=== PATIENT | female | born 1970 | race Hispanic/Latino ===

== ENCOUNTER 2021-08-15 12:43 | Emergency (ER) | payer OTHER ==
[~2021-08-15] VITALS: Ht 165.1 cm; Wt 74.8 kg
[2021-08-15 12:44] VITALS: BP 125/58
[2021-08-15 16:04] LABS: BASOPHILS % (AUTO) 0.2 % (0.0-5.0); EOSINOPHILS % (AUTO) 1.9 % (0.0-8.0); HEMATOCRIT 43.2 % (36-48); LYMPHOCYTES % (AUTO) 24.6 % (21.0-51.0); MEAN CORPUSCULAR HEMOGLOBIN 29.1 pg (27.0-33.0); MEAN CORPUSCULAR HGB CONC 33.3 g/dL (32.0-36.0); MEAN CORPUSCULAR VOLUME 87.4 fL (79-99); MONOCYTES % (AUTO) 9.9 % (3.0-13.0); NEUTROPHILS % (AUTO) 62.8 % (40.0-77.0); PLATELET COUNT (AUTO) 139 K/uL (130-400); RED BLOOD CELL COUNT(AUTO) 4.94 MIL/uL (4.00-5.50); RED CELL DISTRIBUTION WIDTH 12.7 % (11.0-15.5); WHITE BLOOD COUNT (AUTO) 10.8 K/uL (4.8-10.8)
[2021-08-15 16:09] LABS: APPEARANCE,URINE Clear (CLEAR); BILIRUBIN,URINE Negative (NEGATIVE); COLOR,URINE Yellow (YELLOW); GLUCOSE, URINE (UA) Negative (NEGATIVE); KETONES,URINE Negative (NEGATIVE); LEUKOCYTE ESTERASE ,URINE Small (NEGATIVE); NITRATE,URINE Negative (NEGATIVE); OCCULT BLOOD,URINE Negative (NEGATIVE); PH,URINE 6.5 (5.0-8.0); PROTEIN,URINE Negative (NEGATIVE)
[2021-08-15 16:27] LABS: BACTERIA,URINE Few /HPF (None Seen); RBC,URINE 0-1 /HPF (0-1); SQUAMOUS EPITHELIAL CELL,UR Moderate /HPF (0-2)
[2021-08-15 16:43] LABS: CREATININE 0.8 mg/dL (0.5-1.5); POTASSIUM 3.9 mmol/L (3.5-5.1)
[2021-08-15 16:48] LABS: ALBUMIN 3.8 g/dL (3.5-5.0); BILIRUBIN,TOTAL 0.4 mg/dL (0.2-1.0); TOTAL PROTEIN, SERUM 7.8 g/dL (6.0-8.3)
[2021-08-15] MEDS ORDERED: 0.9%NACL 1000ML 1,000 ML IV ONE (17:00)
[2021-08-15] MEDS ORDERED: MECLIZINE HCL 25 MG TABLET PO ONE (17:00)
[2021-08-15] MEDS ORDERED: IBUPROFEN 600 MG TABLET PO ONE (17:00)
[2021-08-15] MEDS ORDERED: MECL-160 PO (18:16)
[2021-08-15] MEDS ORDERED: CEPH500B PO (18:16)
== END 2021-08-15 19:06 | disposition home or self-care (01) ==
LOC: EDH 12:43
DX: H81.12 Benign paroxysmal vertigo, left ear (principal); N39.0 Urinary tract infection, site not specified; E11.9 Type 2 diabetes mellitus without complications; K21.9 Gastro-esophageal reflux disease without esophagitis; E78.00 Pure hypercholesterolemia, unspecified; G43.909 Migraine, unspecified, not intractable, without status migrainosus; Z79.899 Other long term (current) drug therapy; Z88.5 Allergy status to narcotic agent; Z90.49 Acquired absence of other specified parts of digestive tract; Z98.890 Other specified postprocedural states
CPT/HCPCS: 36415; 80053; 81001; 85025; 93005; 96360; 99284; J7030

== ENCOUNTER 2022-09-30 20:33 | Emergency (ER) | payer OTHER ==
[~2022-09-30] VITALS: Ht 142.2 cm; Wt 81.6 kg
[~2022-09-30 20:33] MED LIST: DICY20TA2 PO; FEXO180T94 PO; GABA-534 PO; LISI5TAB21 PO; MAGN400T40 PO; MECL-160 PO; METF-446 PO; OMEP40CA21 PO; ROSU10TA28 PO; UBRO100T PO
[2022-09-30 21:02] VITALS: O2SAT 98
[2022-09-30 21:06] VITALS: BP 159/90; PULSE 87; RESP 18
[2022-09-30 22:15] LABS: BASOPHILS # (AUTO) 0.03 K/uL (0.00-0.20); BASOPHILS % (AUTO) 0.2 % (0.0-5.0); EOSINOPHILS # (AUTO) 0.07 K/uL (0.00-0.70); EOSINOPHILS % (AUTO) 0.5 % (0.0-8.0); HEMATOCRIT 43.4 % (36-48); IMMATURE GRANULOCYTE ABSOLUTE 0.08 K/uL (0-1); LYMPHOCYTES # (AUTO) 2.9 K/uL (1.0-4.8); LYMPHOCYTES % (AUTO) 20.4 % (21.0-51.0); MEAN CORPUSCULAR VOLUME 87.5 fL (79-99); MONOCYTES # (AUTO) 1.4 K/uL (0.1-1.0); MONOCYTES % (AUTO) 9.9 % (3.0-13.0); NEUTROPHILS # (AUTO) 9.9 K/uL (1.8-7.7); NEUTROPHILS % (AUTO) 68.4 % (40.0-77.0); PLATELET COUNT (AUTO) 222 K/uL (130-400); RED BLOOD CELL COUNT(AUTO) 4.96 MIL/uL (4.00-5.50); RED CELL DISTRIBUTION WIDTH 14.1 % (11.0-15.5); WHITE BLOOD COUNT (AUTO) 14.4 K/uL (4.8-10.8)
[2022-09-30 22:25] LABS: APPEARANCE,URINE CLEAR (CLEAR); BILIRUBIN,URINE NEGATIVE (NEGATIVE); COLOR,URINE COLORLESS (YELLOW); GLUCOSE, URINE (UA) NEGATIVE (NEGATIVE); KETONES,URINE NEGATIVE (NEGATIVE); LEUKOCYTE ESTERASE ,URINE 75 Leu/uL (NEGATIVE); NITRATE,URINE NEGATIVE (NEGATIVE); OCCULT BLOOD,URINE SMALL (NEGATIVE); PH,URINE 5.5 (5.0-8.0); PROTEIN,URINE 10 mg/dL (NEGATIVE); UROBILINOGEN,URINE 0.2 mg/dL (0.2-1.0)
[2022-09-30 22:26] LABS: CREATININE 0.7 mg/dL (0.5-1.5); POTASSIUM 3.8 mmol/L (3.5-5.1)
[2022-09-30 22:28] LABS: ADD UA MICROSCOPIC YES
[2022-09-30] MEDS ORDERED: 0.9%NACL 1000ML 1,000 ML IV SCH (22:30)
[2022-09-30] MEDS ORDERED: ACETAMINOPHEN 325 MG TAB PO ONE (22:30)
[2022-09-30 22:32] LABS: ALBUMIN 3.6 g/dL (3.5-5.0); BILIRUBIN,TOTAL 0.6 mg/dL (0.2-1.0); TOTAL PROTEIN, SERUM 7.4 g/dL (6.0-8.3)
[2022-09-30 22:45] LABS: MUCUS,URINE RARE LPF (None Seen); SQUAMOUS EPITHELIAL CELL,UR FEW /HPF (0-2); WBC,URINE 26-50 /HPF (0-1)
[2022-09-30] MEDS ORDERED: CEFTRIAXONE 1G VIAL ONE (23:14)
[2022-09-30] MEDS ORDERED: TAMSULOSIN HCL 0.4 MG CAP.ER.24H PO ONE (23:30)
[2022-09-30] MEDS ORDERED: CEFTRIAXONE 1G VIAL IVPB ONE (23:30)
[2022-09-30] MEDS ORDERED: TAMS-1 PO (23:53)
[2022-09-30] MEDS ORDERED: ACET-2459 PO (23:53)
[2022-09-30] MEDS ORDERED: CEPH500B PO (23:53)
[2022-10-01] MEDS ORDERED: ONDANSETRON 4MG INJ IVP ONE
[2022-10-01] MEDS ORDERED: MORPHINE 4 MG SYG IVP ONE
== END 2022-10-01 00:24 | disposition home or self-care (01) ==
LOC: EDH 20:33
DX: N20.0 Calculus of kidney (principal); N39.0 Urinary tract infection, site not specified; E11.9 Type 2 diabetes mellitus without complications; E78.00 Pure hypercholesterolemia, unspecified; I10 Essential (primary) hypertension; K21.9 Gastro-esophageal reflux disease without esophagitis; Z79.84 Long term (current) use of oral hypoglycemic drugs; Z79.899 Other long term (current) drug therapy; Z86.73 Personal history of transient ischemic attack (TIA), and cerebral infarction without residual deficits; Z88.5 Allergy status to narcotic agent; Z88.8 Allergy status to other drugs, medicaments and biological substances; Z90.49 Acquired absence of other specified parts of digestive tract
CPT/HCPCS: 99285; 74176; 96374; 96361; 96375 ×2; 80053; 85025; 87088; 81001; 81025; 36415; J7030; J0696; J2270; J2405; 96367

== ENCOUNTER 2023-03-07 13:27 | Emergency (ER) | payer OTHER ==
[~2023-03-07] VITALS: Ht 144.8 cm; Wt 81.6 kg
[~2023-03-07 13:27] MED LIST changes: +BACL10TA PO; +DICL100G60 TP; +DULA0.75 SQ; -LISI5TAB21 PO; -MECL-160 PO; -ROSU10TA28 PO; +TRAM50TA4 PO; -UBRO100T PO
[2023-03-07] MEDS ORDERED: ASPIRIN 325MG TAB PO ONE (14:00)
[2023-03-07 14:14] LABS: BASOPHILS # (AUTO) 0.03 K/uL (0.00-0.20); BASOPHILS % (AUTO) 0.3 % (0.0-5.0); EOSINOPHILS # (AUTO) 0.12 K/uL (0.00-0.70); EOSINOPHILS % (AUTO) 1.2 % (0.0-8.0); HEMATOCRIT 43.3 % (36-48); IMMATURE GRANULOCYTE ABSOLUTE 0.07 K/uL (0-1); LYMPHOCYTES # (AUTO) 2.7 K/uL (1.0-4.8); LYMPHOCYTES % (AUTO) 27.1 % (21.0-51.0); MEAN CORPUSCULAR HEMOGLOBIN 28.4 pg (27.0-33.0); MEAN CORPUSCULAR HGB CONC 32.6 g/dL (32.0-36.0); MEAN CORPUSCULAR VOLUME 87.3 fL (79-99); MONOCYTES # (AUTO) 0.9 K/uL (0.1-1.0); NEUTROPHILS # (AUTO) 6.2 K/uL (1.8-7.7); NEUTROPHILS % (AUTO) 61.7 % (40.0-77.0); PLATELET COUNT (AUTO) 254 K/uL (130-400); RED BLOOD CELL COUNT(AUTO) 4.96 MIL/uL (4.00-5.50); RED CELL DISTRIBUTION WIDTH 14.7 % (11.0-15.5); WHITE BLOOD COUNT (AUTO) 10.1 K/uL (4.8-10.8)
[2023-03-07 14:23] LABS: CREATININE 0.9 mg/dL (0.5-1.5)
[2023-03-07 14:28] LABS: ALBUMIN 3.8 g/dL (3.5-5.0); BILIRUBIN,TOTAL 0.3 mg/dL (0.2-1.0); TOTAL PROTEIN, SERUM 7.3 g/dL (6.0-8.3)
[2023-03-07 15:03] LABS: B-TYPE NATRIURETIC PEPTIDE 9 pg/mL (0-100)
[2023-03-07] MEDS ORDERED: KETOROLAC 60 MG VIAL (30MG/ML) IM ONE (17:30)
[2023-03-07] MEDS: NITROGLYCERIN 0.4 MG SL TAB SL PRN ×2 (17:57→18:23)
[2023-03-07 18:36] LABS: APPEARANCE,URINE CLEAR (CLEAR); BILIRUBIN,URINE NEGATIVE (NEGATIVE); COLOR,URINE LIGHT-YELLOW (YELLOW); GLUCOSE, URINE (UA) NEGATIVE (NEGATIVE); KETONES,URINE NEGATIVE (NEGATIVE); LEUKOCYTE ESTERASE ,URINE 25 Leu/uL (NEGATIVE); NITRATE,URINE NEGATIVE (NEGATIVE); OCCULT BLOOD,URINE NEGATIVE (NEGATIVE); PROTEIN,URINE NEGATIVE (NEGATIVE); UROBILINOGEN,URINE 0.2 mg/dL (0.2-1.0)
[2023-03-07 18:40] LABS: ADD UA MICROSCOPIC YES
[2023-03-07 18:42] LABS: BACTERIA,URINE FEW /HPF (None Seen); MUCUS,URINE RARE LPF (None Seen); SQUAMOUS EPITHELIAL CELL,UR MOD /HPF (0-2)
[2023-03-07] MEDS ORDERED: KETO10TA2 PO (18:50)
[2023-03-07 18:57] VITALS: BP 142/76; PULSE 76; RESP 20; O2SAT 97
[2023-03-08] MEDS ORDERED: CEPH500T PO (18:02)
== END 2023-03-07 19:07 | disposition home or self-care (01) ==
LOC: EDH 13:27
DX: M94.0 Chondrocostal junction syndrome [Tietze] (principal); R79.89 Other specified abnormal findings of blood chemistry; E11.9 Type 2 diabetes mellitus without complications; E78.00 Pure hypercholesterolemia, unspecified; I10 Essential (primary) hypertension; K21.9 Gastro-esophageal reflux disease without esophagitis; Z79.84 Long term (current) use of oral hypoglycemic drugs; Z79.899 Other long term (current) drug therapy; Z86.73 Personal history of transient ischemic attack (TIA), and cerebral infarction without residual deficits; Z88.5 Allergy status to narcotic agent; Z88.8 Allergy status to other drugs, medicaments and biological substances; Z90.49 Acquired absence of other specified parts of digestive tract
CPT/HCPCS: 99285; 71045; 82550; 84484 ×2; 80053; 83880; 85025; 81001; 36415; 96372; 93005 ×2; J1885

== ENCOUNTER 2023-03-08 12:25 | Emergency (ER) | payer OTHER ==
[~2023-03-08] VITALS: Ht 160 cm; Wt 72.6 kg
[~2023-03-08 12:25] MED LIST changes: +KETO10TA2 PO
[2023-03-08 12:31] VITALS: O2SAT 100
[2023-03-08 12:53] VITALS: PULSE 75; RESP 20
[2023-03-08] MEDS ORDERED: IPRATROPIUM/ALBUTEROL SULFATE 3 ML SOLUTION IH ONE (13:00)
[2023-03-08 13:18] LABS: BASOPHILS # (AUTO) 0.03 K/uL (0.00-0.20); BASOPHILS % (AUTO) 0.3 % (0.0-5.0); EOSINOPHILS % (AUTO) 1.1 % (0.0-8.0); HEMATOCRIT 42.3 % (36-48); IMMATURE GRANULOCYTE ABSOLUTE 0.06 K/uL (0-1); LYMPHOCYTES # (AUTO) 2.5 K/uL (1.0-4.8); LYMPHOCYTES % (AUTO) 27.5 % (21.0-51.0); MEAN CORPUSCULAR HEMOGLOBIN 28.2 pg (27.0-33.0); MEAN CORPUSCULAR HGB CONC 32.4 g/dL (32.0-36.0); MEAN CORPUSCULAR VOLUME 87.2 fL (79-99); MONOCYTES # (AUTO) 0.8 K/uL (0.1-1.0); MONOCYTES % (AUTO) 9.1 % (3.0-13.0); NEUTROPHILS # (AUTO) 5.5 K/uL (1.8-7.7); NEUTROPHILS % (AUTO) 61.3 % (40.0-77.0); PLATELET COUNT (AUTO) 265 K/uL (130-400); RED BLOOD CELL COUNT(AUTO) 4.85 MIL/uL (4.00-5.50); RED CELL DISTRIBUTION WIDTH 14.8 % (11.0-15.5); WHITE BLOOD COUNT (AUTO) 8.9 K/uL (4.8-10.8)
[2023-03-08 13:34] LABS: CREATININE 0.7 mg/dL (0.5-1.5); POTASSIUM 4.5 mmol/L (3.5-5.1)
[2023-03-08 13:41] LABS: ALBUMIN 3.4 g/dL (3.5-5.0); BILIRUBIN,TOTAL 0.4 mg/dL (0.2-1.0)
[2023-03-08 14:16] LABS: APPEARANCE,URINE CLEAR (CLEAR); BILIRUBIN,URINE NEGATIVE (NEGATIVE); COLOR,URINE LIGHT-YELLOW (YELLOW); GLUCOSE, URINE (UA) NEGATIVE (NEGATIVE); KETONES,URINE NEGATIVE (NEGATIVE); LEUKOCYTE ESTERASE ,URINE 75 Leu/uL (NEGATIVE); NITRATE,URINE NEGATIVE (NEGATIVE); OCCULT BLOOD,URINE NEGATIVE (NEGATIVE); PROTEIN,URINE NEGATIVE (NEGATIVE); UROBILINOGEN,URINE 0.2 mg/dL (0.2-1.0)
[2023-03-08 14:19] LABS: B-TYPE NATRIURETIC PEPTIDE 9 pg/mL (0-100)
[2023-03-08 14:25] LABS: ADD UA MICROSCOPIC YES
[2023-03-08 14:40] LABS: INR <= 0.93 (0.85-1.15); PROTHROMBIN TIME 10.3 SEC (9.6-11.6)
[2023-03-08 14:42] LABS: PARTIAL THROMBOPLASTIN TIME 27.3 SEC (26.3-35.5)
[2023-03-08 14:51] LABS: BACTERIA,URINE MOD /HPF (None Seen); MUCUS,URINE RARE LPF (None Seen); RBC,URINE 0-1 /HPF (0-1); SQUAMOUS EPITHELIAL CELL,UR MANY /HPF (0-2)
[2023-03-08] MEDS ORDERED: IOHEXOL 350 MG/ML 100ML INFUS..BTL IV ONE (17:07)
[2023-03-08] MEDS ORDERED: CEPH500T PO (18:02)
[2023-03-08 18:13] VITALS: BP 138/77; PULSE 72; RESP 20
== END 2023-03-08 18:20 | disposition home or self-care (01) ==
LOC: EDH 12:25
DX: N39.0 Urinary tract infection, site not specified (principal); R06.4 Hyperventilation; R10.12 Left upper quadrant pain; F41.9 Anxiety disorder, unspecified; E11.9 Type 2 diabetes mellitus without complications; E78.00 Pure hypercholesterolemia, unspecified; I10 Essential (primary) hypertension; K21.9 Gastro-esophageal reflux disease without esophagitis; M79.7 Fibromyalgia; Z79.01 Long term (current) use of anticoagulants; Z79.84 Long term (current) use of oral hypoglycemic drugs; Z79.899 Other long term (current) drug therapy; Z86.73 Personal history of transient ischemic attack (TIA), and cerebral infarction without residual deficits; Z88.5 Allergy status to narcotic agent; Z88.8 Allergy status to other drugs, medicaments and biological substances
CPT/HCPCS: 99285; 74177; 71045; 82550; 84484; 80053; 83880; 85025; 85378; 85610; 85730; 87088; 81001; 36415; 93005; 94640; Q9967

== ENCOUNTER 2023-03-23 14:07 | Emergency (ER) | payer OTHER ==
[~2023-03-23] VITALS: Ht 165.1 cm; Wt 81.6 kg
[~2023-03-23 14:07] MED LIST changes: +CEPH500T PO
[2023-03-23 14:09] VITALS: BP 144/70; PULSE 90; RESP 16
[2023-03-23 15:01] LABS: BASOPHILS # (AUTO) 0.03 K/uL (0.00-0.20); BASOPHILS % (AUTO) 0.3 % (0.0-5.0); EOSINOPHILS # (AUTO) 0.15 K/uL (0.00-0.70); EOSINOPHILS % (AUTO) 1.5 % (0.0-8.0); HEMATOCRIT 42.5 % (36-48); IMMATURE GRANULOCYTE ABSOLUTE 0.05 K/uL (0-1); LYMPHOCYTES # (AUTO) 2.3 K/uL (1.0-4.8); LYMPHOCYTES % (AUTO) 22.7 % (21.0-51.0); MEAN CORPUSCULAR HEMOGLOBIN 28.1 pg (27.0-33.0); MEAN CORPUSCULAR HGB CONC 32.2 g/dL (32.0-36.0); MEAN CORPUSCULAR VOLUME 87.3 fL (79-99); MONOCYTES # (AUTO) 0.9 K/uL (0.1-1.0); MONOCYTES % (AUTO) 9.4 % (3.0-13.0); NEUTROPHILS # (AUTO) 6.6 K/uL (1.8-7.7); NEUTROPHILS % (AUTO) 65.6 % (40.0-77.0); PLATELET COUNT (AUTO) 261 K/uL (130-400); RED BLOOD CELL COUNT(AUTO) 4.87 MIL/uL (4.00-5.50); RED CELL DISTRIBUTION WIDTH 14.5 % (11.0-15.5)
[2023-03-23 15:06] LABS: CREATININE 0.8 mg/dL (0.5-1.5); POTASSIUM 3.6 mmol/L (3.5-5.1)
[2023-03-23 15:11] LABS: ALBUMIN 3.8 g/dL (3.5-5.0); BILIRUBIN,TOTAL 0.5 mg/dL (0.2-1.0); TOTAL PROTEIN, SERUM 7.4 g/dL (6.0-8.3)
[2023-03-23 15:30] LABS: APPEARANCE,URINE CLEAR (CLEAR); BILIRUBIN,URINE NEGATIVE (NEGATIVE); COLOR,URINE LIGHT-YELLOW (YELLOW); GLUCOSE, URINE (UA) NEGATIVE (NEGATIVE); KETONES,URINE NEGATIVE (NEGATIVE); LEUKOCYTE ESTERASE ,URINE NEGATIVE Leu/uL (NEGATIVE); NITRATE,URINE NEGATIVE (NEGATIVE); OCCULT BLOOD,URINE NEGATIVE (NEGATIVE); PROTEIN,URINE NEGATIVE (NEGATIVE); UROBILINOGEN,URINE 0.2 mg/dL (0.2-1.0)
[2023-03-23 15:36] LABS: ADD UA MICROSCOPIC NO
[2023-03-23 15:37] LABS: AMPHET/METH SCREEN,URINE NEGATIVE (NEGATIVE); BARBITURATE SCREEN, URINE NEGATIVE (NEGATIVE); BENZODIAZEPINES SCREEN,URINE NEGATIVE (NEGATIVE); CANNABINOID SCREEN,URINE NEGATIVE (NEGATIVE); COCAINE SCREEN,URINE NEGATIVE (NEGATIVE); OPIATE SCREEN,URINE NEGATIVE (NEGATIVE); PHENCYCLIDINE SCREEN,URINE NEGATIVE (NEGATIVE)
[2023-03-23] MEDS: 0.9%NACL 1000ML 1,000 ML IV ONE (15:49)
[2023-03-23] MEDS: ONDANSETRON 4MG INJ IVP ONE (17:14)
[2023-03-23] MEDS: LORAZEPAM 2 MG/ML 1 ML VIAL IVP ONE (17:17)
== END 2023-03-23 18:15 | disposition home or self-care (01) ==
LOC: EDH 14:07
DX: F41.9 Anxiety disorder, unspecified (principal); I10 Essential (primary) hypertension; E78.00 Pure hypercholesterolemia, unspecified; E11.9 Type 2 diabetes mellitus without complications; K21.9 Gastro-esophageal reflux disease without esophagitis
CPT/HCPCS: 99285; 70450; 96374; 71045; 96361; 96375; 84484 ×2; 80053; 80305; 85025; 81003; 36415; 72125; 93005 ×2; J7030; J2405; J2060

== ENCOUNTER → 2023-05-19 | Outpatient (CLI) | payer OTHER | END | disposition home or self-care (01) | LOC: OIH 08:37 | PROVIDERS: ATTEND Internal Medicine Cardiovascular Disease | DX: Z13.6 Encounter for screening for cardiovascular disorders (principal) | CPT/HCPCS: 75571 ==

== ENCOUNTER → 2023-06-04 | Outpatient (CLI) | payer OTHER ==
[2023-06-04 22:50] VITALS: PULSE 72; RESP 26
[2023-06-04 23:30] VITALS: PULSE 68; RESP 26
[2023-06-05] VITALS (11 sets, daily range): PULSE 64–74; RESP 24–32
== END | disposition home or self-care (01) ==
LOC: SLP 20:25
PROVIDERS: ATTEND Internal Medicine
DX: G47.33 Obstructive sleep apnea (adult) (pediatric) (principal); R53.83 Other fatigue
CPT/HCPCS: 95810

== ENCOUNTER → 2023-09-15 | Outpatient (CLI) | payer OTHER ==
[~2023-09-15] MED LIST changes: +IOHEXOL 350 MG/ML 100ML INFUS..BTL IV ONE
== END | disposition home or self-care (01) ==
LOC: RAH 09:25
PROVIDERS: ATTEND Internal Medicine Gastroenterology
DX: N28.89 Other specified disorders of kidney and ureter (principal); R10.11 Right upper quadrant pain; M47.815 Spondylosis without myelopathy or radiculopathy, thoracolumbar region; Z90.49 Acquired absence of other specified parts of digestive tract
CPT/HCPCS: 74177; Q9967

== ENCOUNTER → 2023-11-19 | Outpatient (CLI) | payer OTHER ==
[~2023-11-19] MED LIST changes: -IOHEXOL 350 MG/ML 100ML INFUS..BTL IV ONE; +NAPR-1084 PO
[2023-11-19 21:58] VITALS: PULSE 64; RESP 20
[2023-11-19 22:30] VITALS: PULSE 68; RESP 24
[2023-11-19 23:00] VITALS: PULSE 64; RESP 26
[2023-11-19 23:30] VITALS: PULSE 68; RESP 24
[2023-11-20] VITALS (10 sets, daily range): PULSE 60–70; RESP 16–24
== END | disposition home or self-care (01) ==
LOC: SLP 20:19
PROVIDERS: ATTEND Internal Medicine
DX: G47.33 Obstructive sleep apnea (adult) (pediatric) (principal)
CPT/HCPCS: 95811